=== PATIENT | male | born 1990 ===

== ENCOUNTER → 2020-08-15 14:50 | Outpatient (BNVA) | payer SELFPAY | PROVIDERS: Family Provider Family Medicine; PCP Nurse Practitioner Family; Referring Provider Nurse Practitioner Family; Visit Provider Nurse Practitioner Family | DX: N30.90 Cystitis, unspecified without hematuria (principal) | CPT/HCPCS: 81003; 87077; 87086; 87184 ==

== ENCOUNTER → 2020-09-17 09:02 | Outpatient (BNVA) | payer OTHER, SELFPAY | PROVIDERS: Family Provider Family Medicine; PCP Nurse Practitioner Family; Visit Provider Urology | DX: N39.0 Urinary tract infection, site not specified (principal); N41.8 Other inflammatory diseases of prostate | CPT/HCPCS: 81003 ==

== ENCOUNTER → 2020-12-17 09:39 | Outpatient (BNVA) | payer OTHER, SELFPAY | PROVIDERS: Family Provider Family Medicine; PCP Nurse Practitioner Family; Visit Provider Urology | DX: N39.0 Urinary tract infection, site not specified (principal) | CPT/HCPCS: 81003 ==

== ENCOUNTER → 2021-12-18 09:24 | Outpatient (BNVA) | payer SELFPAY | PROVIDERS: Family Provider Family Medicine; PCP Nurse Practitioner Family; Visit Provider Urology | DX: N39.0 Urinary tract infection, site not specified (principal) | CPT/HCPCS: 81003 ==

== ENCOUNTER → 2023-12-29 13:12 | Outpatient (BNVA) | payer OTHER, SELFPAY | PROVIDERS: Family Provider Family Medicine; PCP Nurse Practitioner Family; Visit Provider Family Medicine | DX: R50.9 Fever, unspecified (principal); J30.2 Other seasonal allergic rhinitis; H61.23 Impacted cerumen, bilateral | CPT/HCPCS: 87400 ==

== ENCOUNTER → 2025-03-13 12:44 | Outpatient (BNVA) | payer SELFPAY | PROVIDERS: PCP Nurse Practitioner Family; Visit Provider Nurse Practitioner Family | DX: E66.01 Morbid (severe) obesity due to excess calories (principal); Z83.49 Family history of other endocrine, nutritional and metabolic diseases | CPT/HCPCS: 80053; 80061; 81256; 82306; 82607; 82728; 83036; 83550; 83735; 84439; 84443; 85025 ==

== ENCOUNTER → 2025-04-11 08:08 | Outpatient (BNVA) | payer SELFPAY | PROVIDERS: PCP Nurse Practitioner Family; Visit Provider Nurse Practitioner Family | DX: R74.8 Abnormal levels of other serum enzymes (principal) | CPT/HCPCS: 80053 ==

== ENCOUNTER 2025-04-18 09:21 | Oncology outpatient (recurring) (ONCR) | payer SELFPAY ==
[2025-04-18 10:35] LABS: Hematocrit 44.2 % (37-53); Hemoglobin 15.70 g/dL (11.27-16.99); Mean Corpuscular HGB Conc 35.5 g/dL (30-55); Mean Corpuscular Hemoglobin 29.3 pg (27-33); Mean Corpuscular Volume 82.5 fl (82-101); Nucleated Red Blood Cells % 0 %; Platelet Count 310 10^3/cmm (157-399); Red Blood Count 5.36 10^6/uL (3.85-5.65); White Blood Count 6.14 10^3/uL (3.29-11.43)
[2025-04-18 10:54] LABS: Alanine Aminotransferase 96 U/L (0-41); Albumin Level 4.6 g/dL (3.5-5.2); Alkaline Phosphatase 62 U/L (40-130); Anion Gap 16.4 (5-19); Aspartate Amino Transferase 39 U/L (0-40); Blood Urea Nitrogen 20 mg/dL (6-20); Calcium 9.4 mg/dL (8.5-10.5); Carbon Dioxide 22 mmol/L (22-29); Chloride 105 mmol/L (98-107); Creatinine Clr Calc Pharmacy 151.6969; Ferritin 521 ng/mL (30-400); Globulin 2.7 g/dL (1.3-4.6); Glucose 98 mg/dL (65-115); Iron 88 ug/dL (59-158); Osmolality Calculated 291 mOsm/kg (285-295); Potassium 4.4 mmol/L (3.5-5.1); Sodium 139 mmol/L (136-145); Total Iron Binding Capacity 261 mcg/dl; Total Protein 7.3 g/dL (6.6-8.7); Unsaturated Iron Binding 173 ug/dL (112-347)
[2025-04-18 12:11] LABS: Hepatitis B Surface Antigen Non-Reactive (Nonreactive)
== END 2025-04-29 23:59 | disposition home or self-care (01) ==
LOC: ONCMED 09:22
PROVIDERS: PCP Nurse Practitioner Family; Visit Provider Internal Medicine
DX: E83.110 Hereditary hemochromatosis (principal)
CPT/HCPCS: 36415; 80053; 82728; 83540; 83550; 83615; 85025; 86140; 86704; 86705; 86706; 86803; 87340

== ENCOUNTER 2025-04-20 09:09 | Outpatient (CLI) | payer SELFPAY ==
--- NOTE | 2025-04-20 09:45 | US_ITS ---
WS: [id number] RIGHT UPPER QUADRANT ULTRASOUND HISTORY: R74.8 - Abnormal levels of other serum enzymes COMPARISON: None available. Liver: 18.8 cm in length. Liver is slightly enlarged. Loss of the normal portal triads. Marked attenuation. Poor visualization of the posterior liver towards the diaphragm. Hepatic steatosis is diffuse. Portal Vein: Normal hepatopetal flow with monophasic waveform. Gallbladder: Normally distended gallbladder with no stones or wall thickening. CBD: 0.4 cm Pancreas: Not visualized. Right kidney: 10.8 cm in length. Limited. No hydronephrosis. Mass would be difficult to exclude. Aorta and IVC: Limited. No ascites. US/US liver [id number] IMPRESSION: 1. Technically difficult RIGHT upper quadrant ultrasound due to body habitus. 2. Negative gallbladder. 3. Mild hepatic enlargement with marked hepatic steatosis.
== END 2025-04-20 09:10 | disposition home or self-care (01) ==
PROVIDERS: PCP Nurse Practitioner Family; Visit Provider Nurse Practitioner Family
DX: R74.8 Abnormal levels of other serum enzymes (principal); K76.0 Fatty (change of) liver, not elsewhere classified
CPT/HCPCS: 76705

== ENCOUNTER 2025-06-27 14:00 | Oncology outpatient (recurring) (ONCR) | payer SELFPAY ==
[2025-06-06 13:20] LABS: Hematocrit 44.2 % (37-53); Hemoglobin 15.40 g/dL (11.27-16.99); Mean Corpuscular HGB Conc 34.8 g/dL (30-55); Mean Corpuscular Hemoglobin 29.0 pg (27-33); Mean Corpuscular Volume 83.2 fl (82-101); Nucleated Red Blood Cells % 0 %; Platelet Count 312 10^3/cmm (157-399); Red Blood Count 5.31 10^6/uL (3.85-5.65); White Blood Count 7.86 10^3/uL (3.29-11.43)
[2025-06-06 13:39] LABS: Alanine Aminotransferase 74 U/L (0-41); Albumin Level 4.7 g/dL (3.5-5.2); Alkaline Phosphatase 57 U/L (40-130); Aspartate Amino Transferase 32 U/L (0-40); Blood Urea Nitrogen 22 mg/dL (6-20); Calcium 9.9 mg/dL (8.5-10.5); Carbon Dioxide 20 mmol/L (22-29); Chloride 107 mmol/L (98-107); Creatinine Clr Calc Pharmacy 136.8505; Ferritin 458 ng/mL (30-400); Globulin 2.8 g/dL (1.3-4.6); Glucose 98 mg/dL (65-115); Iron 84 ug/dL (59-158); Osmolality Calculated 297 mOsm/kg (285-295); Sodium 142 mmol/L (136-145); Total Iron Binding Capacity 270 mcg/dl; Total Protein 7.5 g/dL (6.6-8.7); Unsaturated Iron Binding 186 ug/dL (112-347)
[2025-06-06 13:42] LABS: Anion Gap 19.3 (5-19); Potassium 4.3 mmol/L (3.5-5.1)
[2025-06-06 14:33] VITALS: BP 146/88; PULSE 82; RESP 16; O2SAT 98
[2025-06-20 13:40] LABS: Hematocrit 43.2 % (37-53); Hemoglobin 15.00 g/dL (11.27-16.99); Mean Corpuscular HGB Conc 34.7 g/dL (30-55); Mean Corpuscular Hemoglobin 29.4 pg (27-33); Mean Corpuscular Volume 84.7 fl (82-101); Nucleated Red Blood Cells % 0 %; Platelet Count 349 10^3/cmm (157-399); Red Blood Count 5.10 10^6/uL (3.85-5.65); White Blood Count 7.89 10^3/uL (3.29-11.43)
[2025-06-20 13:57] LABS: Ferritin 328 ng/mL (30-400)
[2025-06-20 14:37] VITALS: BP 122/78; PULSE 82
--- NOTE | 2025-06-27 14:00 | USR_ITS ---
PROCEDURE INFORMATION: Exam: US Retroperitoneal, Complete, Kidneys, Aorta, IVC. Exam date and time: 06/27/2025 1:47 PM Age: 34 years old Clinical indication: Abnormal findings; Abnormal lab test; Other: Unspecified abnormal finding in specimens from ot. . . ; Additional info: R89.9 - unspecified abnormal finding in specimens from ot. . . TECHNIQUE: Imaging protocol: Real-time ultrasound of the retroperitoneum with image documentation. Complete exam focused on the bilateral kidneys, aorta, and inferior vena cava. COMPARISON: [place] liver [id number] 04/20/2025 9:19 AM FINDINGS: Right kidney: No stones. No hydronephrosis. Left kidney: No stones. No hydronephrosis. Aorta: Normal. No aneurysm. Urinary bladder: Normal. US/US renal BI* [id number] IMPRESSION: No acute findings.
== END 2025-06-29 23:59 | disposition home or self-care (01) ==
LOC: RAD 06-28 → ONCMED 06-28 09:39
PROVIDERS: PCP Nurse Practitioner Family; Visit Provider Internal Medicine
DX: R89.9 Unspecified abnormal finding in specimens from other organs, systems and tissues; Z53.9 Procedure and treatment not carried out, unspecified reason
CPT/HCPCS: 36415; 76770; 80053; 82728; 83540; 83550; 85025; 99195

== ENCOUNTER 2025-07-18 13:30 | Oncology outpatient (recurring) (ONCR) | payer SELFPAY ==
[2025-07-05 12:39] LABS: Hematocrit 42.0 % (37-53); Hemoglobin 14.30 g/dL (11.27-16.99); Mean Corpuscular HGB Conc 34.0 g/dL (30-55); Mean Corpuscular Hemoglobin 28.7 pg (27-33); Mean Corpuscular Volume 84.2 fl (82-101); Nucleated Red Blood Cells % 0 %; Platelet Count 309 10^3/cmm (157-399); Red Blood Count 4.99 10^6/uL (3.85-5.65); White Blood Count 8.34 10^3/uL (3.29-11.43)
[2025-07-05 13:10] LABS: Alanine Aminotransferase 61 U/L (0-41); Albumin Level 4.5 g/dL (3.5-5.2); Alkaline Phosphatase 62 U/L (40-130); Aspartate Amino Transferase 27 U/L (0-40); Blood Urea Nitrogen 17 mg/dL (6-20); Calcium 9.4 mg/dL (8.5-10.5); Carbon Dioxide 23 mmol/L (22-29); Chloride 103 mmol/L (98-107); Globulin 2.4 g/dL (1.3-4.6); Glucose 92 mg/dL (65-115); Osmolality Calculated 287 mOsm/kg (285-295); Sodium 138 mmol/L (136-145); Total Protein 6.9 g/dL (6.6-8.7)
[2025-07-05 13:11] LABS: Anion Gap 15.9 (5-19); Potassium 3.9 mmol/L (3.5-5.1)
[2025-07-05 13:28] LABS: Ferritin 260 ng/mL (30-400)
[2025-07-05 13:57] VITALS: BP 138/80; PULSE 84
[2025-07-18 14:17] LABS: Hematocrit 42.7 % (37-53); Hemoglobin 14.60 g/dL (11.27-16.99); Mean Corpuscular HGB Conc 34.2 g/dL (30-55); Mean Corpuscular Hemoglobin 28.8 pg (27-33); Mean Corpuscular Volume 84.2 fl (82-101); Nucleated Red Blood Cells % 0 %; Platelet Count 369 10^3/cmm (157-399); Red Blood Count 5.07 10^6/uL (3.85-5.65); White Blood Count 7.69 10^3/uL (3.29-11.43)
[2025-07-18 14:36] LABS: Alanine Aminotransferase 64 U/L (0-41); Albumin Level 4.6 g/dL (3.5-5.2); Alkaline Phosphatase 59 U/L (40-130); Aspartate Amino Transferase 33 U/L (0-40); Blood Urea Nitrogen 19 mg/dL (6-20); Calcium 9.3 mg/dL (8.5-10.5); Carbon Dioxide 22 mmol/L (22-29); Chloride 103 mmol/L (98-107); Ferritin 250 ng/mL (30-400); Globulin 2.7 g/dL (1.3-4.6); Glucose 92 mg/dL (65-115); Osmolality Calculated 286 mOsm/kg (285-295); Sodium 137 mmol/L (136-145); Total Protein 7.3 g/dL (6.6-8.7)
[2025-07-18 14:40] LABS: Anion Gap 15.9 (5-19); Potassium 3.9 mmol/L (3.5-5.1)
[2025-07-18 15:10] VITALS: BP 137/83; PULSE 84; RESP 16; TEMP 36.6; O2SAT 97
== END 2025-07-29 23:59 | disposition home or self-care (01) ==
PROVIDERS: PCP Nurse Practitioner Family; Visit Provider Internal Medicine
DX: E83.110 Hereditary hemochromatosis (principal); Z53.9 Procedure and treatment not carried out, unspecified reason
CPT/HCPCS: 80053; 82728; 85025; 99195

== ENCOUNTER 2025-08-15 13:46 | Oncology outpatient (recurring) (ONCR) | payer SELFPAY ==
[2025-08-01 14:32] LABS: Hematocrit 42.1 % (37-53); Hemoglobin 14.40 g/dL (11.27-16.99); Mean Corpuscular HGB Conc 34.2 g/dL (30-55); Mean Corpuscular Hemoglobin 28.7 pg (27-33); Mean Corpuscular Volume 83.9 fl (82-101); Nucleated Red Blood Cells % 0 %; Platelet Count 321 10^3/cmm (157-399); Red Blood Count 5.02 10^6/uL (3.85-5.65); White Blood Count 7.82 10^3/uL (3.29-11.43)
[2025-08-01 14:54] LABS: Alanine Aminotransferase 66 U/L (0-41); Albumin Level 4.6 g/dL (3.5-5.2); Alkaline Phosphatase 56 U/L (40-130); Anion Gap 16.0 (5-19); Aspartate Amino Transferase 30 U/L (0-40); Blood Urea Nitrogen 21 mg/dL (6-20); Calcium 9.5 mg/dL (8.5-10.5); Carbon Dioxide 23 mmol/L (22-29); Chloride 102 mmol/L (98-107); Ferritin 202 ng/mL (30-400); Globulin 2.5 g/dL (1.3-4.6); Glucose 107 mg/dL (65-115); Osmolality Calculated 287 mOsm/kg (285-295); Potassium 4.0 mmol/L (3.5-5.1); Sodium 137 mmol/L (136-145); Total Protein 7.1 g/dL (6.6-8.7)
[2025-08-15 14:11] LABS: Hematocrit 42.5 % (37-53); Hemoglobin 14.60 g/dL (11.27-16.99); Mean Corpuscular HGB Conc 34.4 g/dL (30-55); Mean Corpuscular Hemoglobin 29.1 pg (27-33); Mean Corpuscular Volume 84.7 fl (82-101); Nucleated Red Blood Cells % 0 %; Platelet Count 323 10^3/cmm (157-399); Red Blood Count 5.02 10^6/uL (3.85-5.65); White Blood Count 6.86 10^3/uL (3.29-11.43)
[2025-08-15 14:30] LABS: Alanine Aminotransferase 60 U/L (0-41); Albumin Level 4.5 g/dL (3.5-5.2); Alkaline Phosphatase 62 U/L (40-130); Aspartate Amino Transferase 30 U/L (0-40); Blood Urea Nitrogen 15 mg/dL (6-20); Calcium 9.3 mg/dL (8.5-10.5); Carbon Dioxide 23 mmol/L (22-29); Chloride 103 mmol/L (98-107); Ferritin 165 ng/mL (30-400); Globulin 2.3 g/dL (1.3-4.6); Glucose 71 mg/dL (65-115); Osmolality Calculated 287 mOsm/kg (285-295); Sodium 139 mmol/L (136-145); Total Protein 6.8 g/dL (6.6-8.7)
[2025-08-15 14:51] LABS: Anion Gap 16.4 (5-19); Potassium 3.4 mmol/L (3.5-5.1)
== END 2025-08-29 23:59 | disposition home or self-care (01) ==
PROVIDERS: PCP Nurse Practitioner Family; Visit Provider Internal Medicine
DX: Z53.9 Procedure and treatment not carried out, unspecified reason; E83.110 Hereditary hemochromatosis
CPT/HCPCS: 80053; 82728; 85025; 99195